=== PATIENT | male | born 1960 | race Caucasian/White ===

== ENCOUNTER 2017-06-22 20:37 | Emergency (ER) | payer BC ==
[~2017-06-22] VITALS: Ht 188 cm; Wt 110.0 kg
[2017-06-22 20:44] VITALS: BP 158/109
== END 2017-06-23 | disposition left against medical advice (07) ==
LOC: ER 21:23
DX: Z53.21 Procedure and treatment not carried out due to patient leaving prior to being seen by health care provider (principal)

== ENCOUNTER 2024-10-12 15:38 | Emergency (ER) | payer BC, MEDICAID ==
[~2024-10-12] VITALS: Ht 188 cm; Wt 91.0 kg
[2024-10-12 15:46] VITALS: O2SAT 100
[2024-10-12] MEDS: LIDOCAINE HCL 1% 20ML VIAL INFIL ONE (16:30)
[2024-10-12] MEDS: TETANUS, DIPHTHERIA, PERTUSSIS VAC/PF 0.5ML (>10YR OLD) IM ONE (16:30)
[2024-10-12] MEDS ORDERED: IBUP-2030 MT (19:00)
[2024-10-12] MEDS ORDERED: AMOX1TAB16 MT (19:00)
[2024-10-12] MEDS ORDERED: BO1 TP (19:02)
[2024-10-12 19:20] VITALS: BP 160/99; PULSE 58; RESP 18; TEMP 37.1; O2SAT 100
[2024-10-13] MEDS ORDERED: AMOX1TAB16 MT (19:38)
[2024-10-13] MEDS ORDERED: IBUP-2030 MT (19:38)
[2024-10-13] MEDS ORDERED: BO1 TP (19:38)
== END 2024-10-12 19:25 | disposition home or self-care (01) ==
LOC: ER 15:38
DX: S61.451A Open bite of right hand, initial encounter (principal); F12.90 Cannabis use, unspecified, uncomplicated; Z79.899 Other long term (current) drug therapy; W54.0XXA Bitten by dog, initial encounter; Y93.89 Activity, other specified; Y92.89 Other specified places as the place of occurrence of the external cause; Y99.8 Other external cause status
CPT/HCPCS: 90715; 12004; 90471; 99283; J2003; Z7610

== ENCOUNTER 2024-12-24 17:34 | Emergency (ER) | payer MEDICAID ==
[~2024-12-24] VITALS: Ht 180.3 cm; Wt 88.0 kg
[~2024-12-24 17:34] MED LIST: AMLO10TA80 PO; PANT40TA51 PO
[2024-12-24 17:41] VITALS: TEMP 37.1; O2SAT 100
[2024-12-24 19:30] VITALS: BP 173/100; PULSE 56; RESP 16; O2SAT 100
== END 2024-12-24 19:33 | disposition home or self-care (01) ==
LOC: ER 17:34
DX: H33.23 Serous retinal detachment, bilateral (principal)
CPT/HCPCS: 99282